=== PATIENT | female | born 1945 | race Caucasian/White ===

== ENCOUNTER 2024-04-14 18:38 | Inpatient (IN) | payer SELFPAY ==
--- OUTSIDE RECORDS SUMMARY | 2024-04-14 18:40 | XMS REPORT | Continuity of Care Document ---
Author Name Unknown Address [address] [place] [address] [address] [place] [address] [facility] Address [address] [facility] [address] [place] [address] Care Team Providers Care Supervisor Powdered Metal Name Role Phone SISSON_C Attending Clinician Unavailable SISSON_C Admitting Clinician Unavailable Payers Payer Name Policy Type Policy Number Effective Date Expirati on Date Source Allergies, Adverse Reactions, Alerts Allergy Name Allergy Type Status Severity Reaction(s) Onset Date Inactive Date Treating Clinician Comments Source [place] Allergy to substanc e Active [facility] Social History Smoking Status Start Date Stop Date Source Never Smoker Formerly [facility] Medications Ordered Medication Name Filled Medication Name Start Date Stop Date Current Medication? Ordering Clinician Indication Dosage Frequency Signature (SIG) Comments Components Source albuterol sulfate HFA 90 mcg/actuati on aerosol inhaler INHALE TWO (2) PUFFS BY MOUTH EVERY 4 HOURS NEEDED. albuterol sulfate HFA 90 mcg/actuati on aerosol inhaler INHALE TWO (2) PUFFS BY MOUTH EVERY 4 HOURS NEEDED. No 2puff(s ) Q4H albuterol sulfate HFA 90 mcg/actuat ion aerosol inhaler INHALE TWO (2) PUFFS BY MOUTH EVERY 4 HOURS NEEDED. [facility] clonazepam 1 mg tablet TAKE ONE (1) TABLET(S) BY MOUTH AT BEDTIME. clonazepam 1 mg tablet TAKE ONE (1) TABLET(S) BY MOUTH AT BEDTIME. No clonazepam 1 mg tablet TAKE ONE (1) TABLET(S) BY MOUTH AT BEDTIME. [facility] Vital Signs Vital Name Observation Time Observation Value Comments S ource Body Weight 2023-06-07 00:00:00 2709 [oz_av] [facility] BP Systolic 2023-06-07 00:00:00 122 mm[Hg] [facility] BP Diastolic 2023-06-07 00:00:00 70 mm[Hg] [facility] BP Diastolic 2022-06-07 00:00:00 72 mm[Hg] [facility] BP Systolic 2022-06-07 00:00:00 117 mm[Hg] [facility] Body Weight 2022-06-07 00:00:00 2130.4 [oz_av] [facility] Encounters Start Date/Time End Date/Time Encounter Type Admission Type Attending Clinicians Care Facility Care Department Encounter ID Source 2023-06-14 00:00:00 2023-06-14 00:00:00 DEISY Lowe, NANOSYSTEMS ENGINEER, ELECTRONIC DRAFTER-C: Kenneth Gald[address], [address], [place] [address] , Ph. [facility], DEISY Lowe, ELECTRONIC DRAFTER-C [facility] 2023-06-07 00:00:00 2023-06-07 00:00:00 DEISY Lowe, NANOSYSTEMS ENGINEER, ELECTRONIC DRAFTER-C: Kenneth Galdamez, [address], [place] [address] , Ph. [facility], DEISY Lowe, ELECTRONIC DRAFTER-C [facility] 2023-05-15 00:00:00 2023-05-15 00:00:00 Outpatient SISSON_C [facility] [id number] [facility] 2022-06-07 00:00:00 2022-06-07 00:00:00 Outpatient SISSON_C [facility] 2022-06-07 00:00:00 2022-06-07 00:00:00 DEISY Lowe, NANOSYSTEMS ENGINEER, ELECTRONIC DRAFTER-C: Kenneth Galdamez, [address], [place] [address] , Ph. [facility], Juan Harris, MSN, ELECTRONIC DRAFTER-C [id number] [facility] 2022-05-30 00:00:00 2022-05-30 00:00:00 Outpatient ADAIR [facility] [id number] [facility]
[2024-04-14 20:03] LABS: Absolute Eosinophils 0.1 K/uL (0-0.5); Absolute Lymphocytes (CBC) 0.9 K/uL (0.7-4.9); Absolute Monocytes 0.7 K/uL (0.1-1.3); Absolute Neutrophil 11.6 K/uL (1.8-8.0); Basophils % 0.3 % (0-1.3); Eosinophils % 0.8 % (0-4.4); Hemoglobin 13.6 g/dL (12.0-15.0); Lymphocytes % 6.9 % (15.3-44.8); MCH 30.8 pg (27.0-35.0); MCHC 33.1 g/dL (32.0-36.0); MCV 92.9 fL (80-100); MPV 7.5 fL (7.6-11.3); Monocytes % 5.4 % (3.3-12.3); Neutrophils % 86.6 % (41.7-73.7); Platelets 259 thou/uL (152-406); RBC Red Blood Cell Count 4.41 M/uL (3.86-4.86); Red Cell Distribution Width 13.8 % (12.1-15.2)
[2024-04-14 20:16] LABS: Anion Gap 10.1 mEq/L (5.0-15.0); Potassium 4.1 mEq/L (3.5-5.1)
[2024-04-14] MEDS ORDERED: FENTANYL CITR 100 MCG/2 ML ONE (20:19)
--- NOTE | 2024-04-14 20:26 | RAD REPORT ---
EXAM:Femur Left CLINICAL HISTORY: Left leg pain FINDINGS: A femoral fracture is not seen
--- NOTE | 2024-04-14 20:28 | RAD REPORT ---
EXAMINATION: Tib Fib Left CLINICAL INDICATION: Leg pain FINDINGS: Impacted fracture lateral tibial plateau which involves the tibial spine. The fracture extends inferi misbah approximately 12 cm to involve the tibial diaphysis
[2024-04-14 20:32] LABS: Specific Gravity 1.008 (1.005-1.030); Sqamous Epithelial <5 /HPF (None Seen); Urine Bacteria <20 /HPF (<20); Urine Bilirubin NEGATIVE (Negative); Urine Blood Negative (Negative); Urine Clarity Extremely Turbid (Clear); Urine Color Light-Yellow (Yellow); Urine Crystals Unidentified Few /HPF (None Seen); Urine Culture Reflex Order REFLEXED; Urine Glucose NEGATIVE (Negative); Urine Ketones NEGATIVE (Negative); Urine Micro Reflex YN NO BILL MICROSCOPIC; Urine Nitrite NEGATIVE (Negative); Urine Protein NEGATIVE (Negative); Urine Urobilinogen Normal (Normal); Urine Yeast (Budding) Occasional /HPF (None Seen)
--- NOTE | 2024-04-14 20:40 | ER ---
Nurse's Notes [facility] Name: Di Urbano Age: 78 yrs Sex: Female : 1945 Arrival Date: 04/14/2024 Time: 18:38 Bed 8 Private MD: Diagnosis: Displaced fracture of lateral condyle of left tibia, initial encounter for closed fracture;UTI/ Urinary tract infection, site not specified Presentation: 04/14 18:41 Chief complaint: EMS states: mechanical fall in shower, left leg was behind patient on me1 the floor. c/o pain to left medial knee. Dtr reports patient has frequent utis. Coronavirus screen: Vaccine status: At this time, the client does not indicate any symptoms associated with coronavirus-19. Ebola Screen: No symptoms or risks identified at this time. Initial Sepsis Screen: Does the patient meet any 2 criteria? No. Patient's initial sepsis screen is negative. Does the patient have a suspected source of infection? No. Patient's initial sepsis screen is negative. Risk Assessment: Do you want to hurt yourself or someone else? Patient reports no desire to harm self or others. Onset of symptoms was April 14, 2024. 18:41 Method Of Arrival: EMS[facility] ct1 18:41 Acuity: ROCIO 3 me1 Triage Assessment: 18:47 General: Appears uncomfortable, well groomed, well developed, well nourished, Behavior me1 is calm, cooperative, appropriate for age, Reports slip and fall in shower with pain to left knee. Pain: Complains of pain in left knee Pain does not radiate. Pain currently is 8 out of 10 on a pain scale. Quality of pain is described as sharp, Pain began suddenly, Is continuous. EENT: No signs and/or symptoms were reported regarding the EENT system. Neuro: Level of Consciousness is awake, alert, obeys commands, Oriented to person, hx alzheimers, A\T\OX1 baseline. Cardiovascular: Patient's skin is warm and dry. Respiratory: Airway is patent Respiratory effort is even, unlabored, Respiratory pattern is regular, symmetrical. GI: No signs and/or symptoms were reported involving the gastrointestinal system. : No signs and/or symptoms were reported regarding the genitourinary system. Derm: Skin is intact, is healthy with good turgor, Skin is pink, warm \T\ dry. Musculoskeletal: Reports pain in left knee. Injury Description: slip and fall in shower. Historical: - Allergies: 18:47 Iodine; me1 - PMHx: 18:47 Alzheimer's disease; me1 - Immunization history:: Adult Immunizations up to date. - Infectious Disease History:: Denies. - Social history:: Smoking status: Patient denies any tobacco usage or history of. Screenin:49 [facility] ED Fall Risk Assessment (Adult) History of falling in the last 3 months, me1 including since admission Yes- single mechanical fall (1 pt) Confusion or Disorientation Yes (5 pts) Intoxicated or Sedated No (0 pts) Impaired Gait Yes (1 pt) Mobility Assist Device Used Yes (1 pt) Altered Elimination No (0 pt) Score/Fall Risk Level 3 or more points = High Risk Maintained a safe environment, Hourly rounding (assess needs \T\ fall precautionary measures) done, Used ambulatory aids as needed (educated on \T\ assisted with). Abuse screen: Denies threats or abuse. Nutritional screening: No deficits noted. Tuberculosis screening: No symptoms or risk factors identified. Assessment: 18:49 General: see triage assessment. me1 20:24 Reassessment: Patient appears in no apparent distress at this time. No changes from vc1 previously documented assessment. Patient and/or family updated on plan of care and expected duration. Pain level reassessed. Vital Signs: 18:41 BP 112 / 84; Pulse 89; Resp 19; Temp 98.4; Pulse Ox 95% ; Weight 81.65 kg; Height 5 ft. me1 2 in. ; Pain 8/10; 19:09 BP 109 / 66; Pulse 87; Resp 19; Pulse Ox 94% ; vc1 20:15 BP 144 / 88; Pulse 97; Resp 18; Pulse Ox 98% ; vc1 18:41 Body Mass Index 32.92 (81.65 kg, 157.48 cm) me1 18:41 Pain Scale: Adult ct1 ED Course: 18:40 Patient arrived in ED. me1 18:41 Brett Rios PA is PHCP. cp 18:41 Brett Lord MD is Attending Physician. cp 18:47 Triage completed. me1 18:47 Arm band placed on Patient placed in an exam room. me1 18:49 Patient has correct armband on for positive identification. Bed in low position. Call me1 light in reach. Side rails up X2. Provided Education on: POC. Verbalized understanding.. Client placed on continuous cardiac and pulse oximetry monitoring. NIBP monitoring applied. Pulse ox on. NIBP on. 18:49 No provider procedures requiring assistance completed. me1 19:09 Report received from DARVIN Lemons. vc1 20:00 Inserted saline lock: 20 gauge in right antecubital area, using aseptic technique. oe Blood collected. Flushed with 10 mL NS. 20:11 XRAY Femur LEFT In Process Unspecified. EDMS 20:11 XRAY Tib Fib LEFT In Process Unspecified. EDMS 20:21 Janet Montes is Primary Nurse. cp4 20:36 Cesia Velazquez FNP is Hospitalizing Provider. cp 21:11 Breanna Roque MD is Hospitalizing Provider. cp 23:43 Patient admitted, IV remains in place. vc1 Administered Medications: 20:21 Drug: fentaNYL (PF) IVP 25 mcg IVP once Route: IVP; Site: right antecubital; cp4 20:35 Follow up: Response: No adverse reaction; Marked relief of symptoms; Pain is decreased vc1 21:09 Drug: NS 0.9% IV 500 ml 500 ml IV at 1 bolus once; to be given as a bolus over 60 cp4 minutes Volume: 500 ml; Route: IV; Rate: 1 bolus; Site: right antecubital; 22:00 Follow up: IV Status: Completed infusion; IV Intake: 500ml vc1 21:09 Drug: Rocephin IV 1 grams IV at calculated rate once; Given slow IV push per pharmacy cp4 instructions Route: IV; Rate: calculated rate; Site: right antecubital; 21:10 Follow up: IV Status: Completed infusion; IV Intake: 10ml vc1 22:31 Drug: SEROquel PO 25 mg PO once Route: PO; vc1 23:22 Follow up: Response: No adverse reaction; Marked relief of symptoms vc1 23:21 Not Given (Other Intervention Used): fentanyl (pf)25 mcg IVP once vc1 Medication: 18:49 VIS not applicable for this client. me1 Intake: 21:10 IV: 10ml; Total: 10ml. vc1 22:00 IV: 500ml; Total: 510ml. vc1 Outcome: 20:39 Decision to Hospitalize by Provider. cp 23:43 Admitted to Med/surg accompanied by tech, via stretcher, room 215, vc1 23:43 Condition: stable 23:43 Instructed on the need for admit, 23:44 Patient left the ED. vc1 Signatures: Dispatcher [employer] EDMS Brett Rios PA PA cp Joselo Loo Vanessa, RN RN vc1 Vesta Turcios RN RN ct1 Janet Montes cp4
--- NOTE | 2024-04-14 20:40 | EDPHYS ---
Physician Documentation [facility] Name: Di Urbano Age: 78 yrs Sex: Female : 1945 Arrival Date: 04/14/2024 Time: 18:38 Bed 8 Private MD: ED Physician Brett Lord HPI: 04/14 18:50 This 78 yrs old Female presents to ER via EMS with complaints of Fall Injury. cp 18:50 Details of fall: The patient fell from an upright position, while standing. cp 18:50 Onset: The symptoms/episode began/occurred just prior to arrival. Associated injuries: cp The patient sustained left leg. 18:50 Daughter reports patient fell on wet floor in shower with left leg becoming pin cp underneath patient. Historical: - Allergies: 18:47 Iodine; me1 - PMHx: 18:47 Alzheimer's disease; me1 - Immunization history:: Adult Immunizations up to date. - Infectious Disease History:: Denies. - Social history:: Smoking status: Patient denies any tobacco usage or history of. ROS: 18:55 Constitutional: Negative for fever, poor PO intake, cp 18:55 MS/extremity: Positive for injury or acute deformity, pain, of the left knee, cp 18:55 Eyes: Negative for injury, pain, redness, and discharge, cp 18:55 ENT: Negative for drainage from ear(s), ear pain, difficulty swallowing, difficulty handling secretions, 18:55 Cardiovascular: Negative for chest pain, edema, palpitations, 18:55 Respiratory: Negative for cough, shortness of breath, wheezing, 18:55 Abdomen/GI: Negative for abdominal pain, vomiting, diarrhea, constipation, 18:55 Back: Negative for pain at rest, pain with movement, 18:55 Neuro: Negative for altered mental status, dizziness, headache, speech changes, 18:55 All other systems are negative, Exam: 19:00 Constitutional: The patient appears in no acute distress, alert, awake, cp non-diaphoretic, non-toxic, well developed, well nourished, uncomfortable, 19:00 Head/Face: Normocephalic, atraumatic. cp 19:00 Eyes: Periorbital structures: appear normal, Pupils: equal, round, and reactive to light and accomodation, Conjunctiva: normal, no exudate, no injection, Sclera: no appreciated abnormality, Lids and lashes: appear normal, bilaterally, 19:00 ENT: External ear(s): are unremarkable, Nose: is normal, Mouth: Lips: moist, Oral mucosa: moist, Posterior pharynx: Airway: no evidence of obstruction, patent, 19:00 Neck: C-spine: vertebral tenderness, is not appreciated, crepitus, is not appreciated, ROM/movement: pain, is not appreciated, limited range of motion, is not appreciated, 19:00 Chest/axilla: Inspection: normal, Palpation: is normal, no crepitus, no tenderness, 19:00 Cardiovascular: Rate: normal, Rhythm: regular, 19:00 Respiratory: the patient does not display signs of respiratory distress, Respirations: normal, no use of accessory muscles, no retractions, labored breathing, is not present, Breath sounds: are clear throughout, no decreased breath sounds, no stridor, no wheezing, 19:00 Abdomen/GI: Inspection: abdomen appears normal, Palpation: abdomen is soft and non-tender, in all quadrants, 19:00 Back: pain, is absent, ROM is normal, 19:00 Musculoskeletal/extremity: Extremities: noted in the left knee and left lower leg: decreased ROM, deformity, pain, swelling, tenderness, ROM: limited passive range of motion, in the left knee, Pulses: noted to be 2+ in the left dorsalis pedis artery, the left foot and left leg Sensation intact. 19:00 Neuro: Orientation: no acute changes, per family, Mentation: no acute changes, per family, Sensation: no obvious gross deficits, 20:33 ECG was reviewed by the Attending Physician. Vital Signs: 18:41 BP 112 / 84; Pulse 89; Resp 19; Temp 98.4; Pulse Ox 95% ; Weight 81.65 kg; Height 5 ft. me1 2 in. ; Pain 8/10; 19:09 BP 109 / 66; Pulse 87; Resp 19; Pulse Ox 94% ; vc1 20:15 BP 144 / 88; Pulse 97; Resp 18; Pulse Ox 98% ; vc1 18:41 Body Mass Index 32.92 (81.65 kg, 157.48 cm) me1 18:41 Pain Scale: Adult me1 MDM: 18:41 Medical Screening Exam initiated cp 19:00 Differential diagnosis: closed head injury, contusion, fracture, laceration, multiple cp trauma, sprain. 20:20 Management of patient was discussed with the following: Dominatrix: DR Aponte will cp consult after discussion. 20:33 Data reviewed: vital signs, nurses notes, lab test result(s), EKG, radiologic studies, cp plain films, and as a result, I will admit patient. 21:10 Management of patient was discussed with the following: Hospitalist: Cesia Velazquez NP cp will admit to service of hospitalist after discussion for pain control and ortho consult. 04/14 18:47 Order name: Basic Metabolic Panel; Complete Time: 20:18 cp 04/14 20:18 Interpretation: Normal except: CL 109; GFR 83. cp 04/14 18:47 Order name: CBC with Diff; Complete Time: 21:28 cp 04/14 20:14 Interpretation: Normal except: WBC 13.40; MPV 7.5; EVELYN% 86.6; LYM% 6.9; NEUT A 11.6. cp 04/14 18:47 Order name: Type And Screen; Complete Time: 21:28 cp 04/14 20:18 Order name: Urinalysis W/Microscopic; Complete Time: 20:35 cp 04/14 20:35 Order name: Urine Culture EDMS 04/14 21:21 Order name: CBC Smear Scan; Complete Time: 21:28 EDMS 04/14 22:20 Order name: Urinalysis w/ reflexes EDMS 04/14 22:20 Order name: Basic Metabolic Panel EDMS 04/14 22:20 Order name: Basic Metabolic Panel EDMS 04/14 22:20 Order name: Basic Metabolic Panel EDMS 04/14 22:20 Order name: Basic Metabolic Panel EDMS 04/14 22:20 Order name: CBC with Automated Diff EDMS 04/14 22:20 Order name: CBC with Automated Diff EDMS 04/14 22:20 Order name: CBC with Automated Diff EDMS 04/14 22:20 Order name: CBC with Automated Diff EDMS 04/14 22:20 Order name: Magnesium EDMS 04/14 22:20 Order name: Magnesium EDMS 04/14 22:20 Order name: Magnesium EDMS 04/14 22:20 Order name: Magnesium EDMS 04/14 18:47 Order name: XRAY Femur LEFT; Complete Time: 20:27 cp 04/14 18:47 Order name: XRAY Tib Fib LEFT; Complete Time: 20:35 cp 04/14 20:14 Order name: EKG; Complete Time: 20:15 cp 04/14 22:20 Order name: CONS Physician Consult EDMT 04/14 22:22 Order name: Physical Therapy Consult [facility] 04/14 18:47 Order name: Labs collected and sent; Complete Time: 20:13 cp 04/14 20:14 Order name: EKG - Nurse/Tech; Complete Time: 21:00 cp 04/14 20:18 Order name: Knee Immobilizer; Complete Time: 21:00 cp EC:33 Rate is 93 beats/min. Rhythm is regular. IL interval is normal. QRS interval is normal. cp QT interval is normal. T waves are Inverted in lead aVR. Interpreted by me. Reviewed by me. Administered Medications: 20:21 Drug: fentaNYL (PF) IVP 25 mcg IVP once Route: IVP; Site: right antecubital; cp4 20:35 Follow up: Response: No adverse reaction; Marked relief of symptoms; Pain is decreased vc1 21:09 Drug: NS 0.9% IV 500 ml 500 ml IV at 1 bolus once; to be given as a bolus over 60 cp4 minutes Volume: 500 ml; Route: IV; Rate: 1 bolus; Site: right antecubital; 22:00 Follow up: IV Status: Completed infusion; IV Intake: 500ml vc1 21:09 Drug: Rocephin IV 1 grams IV at calculated rate once; Given slow IV push per pharmacy cp4 instructions Route: IV; Rate: calculated rate; Site: right antecubital; 21:10 Follow up: IV Status: Completed infusion; IV Intake: 10ml vc1 22:31 Drug: SEROquel PO 25 mg PO once Route: PO; vc1 23:22 Follow up: Response: No adverse reaction; Marked relief of symptoms vc1 23:21 Not Given (Other Intervention Used): fentanyl (pf)25 mcg IVP once vc1 Disposition Summary: 04/14/24 20:39 Hospitalization Ordered Notes: Hospitalization Status: Inpatient Admission cp Location: Telemetry/[facility] (Inpatient) cp Condition: Stable cp Problem: new cp Symptoms: have improved cp Bed/Room Type: Standard cp Provider: Breanna Roque(04/14/24 21:11) cp Room Assignment: 215(04/14/24 22:26) rv1 Diagnosis - Displaced fracture of lateral condyle of left tibia, initial encounter for closed cp fracture - UTI/ Urinary tract infection, site not specified cp Forms: - Medication Reconciliation Form cp - SBAR form cp - Leadership Thank You Letter cp Addendum: 04/24/2024 16:23 Co-signature as Attending Physician, Brett Lord MD I agree with the assessment and c edwards plan of care. Signatures: Dispatcher [employer] EDMS Brett Lord MD MD cha Page, Corey, PA PA cp Able, Lacie, RN RN lg3 Yuni Rader RN RN vc1 Bree Mccauley rv1 Vesta Turcios RN RN me1 Janet Montes cp4 Corrections: (The following items were deleted from the chart) 04/14 18:47 18:47 BASIC METABOLIC PANEL+C.LAB.BRZ ordered. EDMS EDMS 18:47 18:47 CBC+H.LAB.BRZ ordered. EDMS EDMS 18:47 18:47 TYPE AND SCREEN+BB.LAB.BRZ ordered. EDMS EDMS 20:19 20:19 Urinalysis W/Microscopic+U.LAB.BRZ ordered. EDMS EDMS 21:11 20:39 Cesia Velazquez cp cp 22:26 20:39 cp rv1
[2024-04-14] MEDS ORDERED: NA CHLORIDE 0.9% 500 ML ONE (21:05)
[2024-04-14] MEDS ORDERED: CEFTRIAXONE 1000 MG/VIAL ONE (21:05)
--- NOTE | 2024-04-14 21:08 | P.HP ---
Certification for Inpatient Patient admitted to: Inpatient <MarcusCesia - Last Filed: 04/14/24 23:59> Patient History Date of Service: 04/14/24 Reason for admission: Fall, left tibia fracture History of Present Illness: 78-year-old female presents to the emergency room via EMS for fall. HPI limited due to patient's confusion, no family at bedside. Medical record reports fall from standing position while standing. Patient is alert and oriented x 1, attempting to ambulate without assistance in ED, knee immobilizer on left lower extremity. Reports pain with range of motion. Family reports unable to care for patient at home, needs assistance with placement. No reported chest pain, abdominal pain, nausea vomiting diarrhea, recent infection. ER evaluation femoral fracture x-ray negative. Left lower extremity Impacted fracture lateral tibial plateau which involves the tibial spine. The fracture extends inferiorly approximately 12 cm to involve the tibial diaphysis. Laboratory evaluation mild leukocytosis at 13.40, left shift 86.6, UA acute cystitis, Admitted for fall, displaced fracture of the left tibia close, acute cystitis withOUT hematuria, metabolic encephalopathy, with surgery to consult - Past Medical/Surgical History -: Alzheimer's <Cesia Velazquez - Last Filed: 04/14/24 23:59> Date of Service: 04/14/24 <Breanna Roque - Last Filed: 04/19/24 02:45> Allergies iodine Allergy (Verified 04/15/24 00:03) Itching/Hives/Rash Home Medications: clonazePAM [Klonopin*] 1 mg PO BEDTIME 04/15/24 Ciprofloxacin HCl [Cipro 250 MG Tablet*] 250 mg PO BID 7 Days #14 tab 04/17/24 Tramadol HCl 100 mg PO Q6H PRN #28 tab 04/17/24 Tramadol HCl 100 mg PO Q6HR 7 Days #28 04/17/24 Review of Systems 10-point ROS is otherwise unremarkable <Cesia Velazquez - Last Filed: 04/14/24 23:59> Physical Examination - Physical Exam General: Alert, In no apparent distress, Oriented x1 HEENT: Atraumatic, Normocephalic Neck: Supple, 2+ carotid pulse no bruit, JVD not distended Respiratory: Normal air movement, Expiratory wheezes Cardiovascular: Normal pulses, Regular rate/rhythm, Normal S1 S2 Capillary refill: <2 Seconds Gastrointestinal: Normal bowel sounds, Soft and benign Musculoskeletal: Other (Generalized weakness, left lower extremity knee immobilizer, pain with range of motion) Integumentary: No breakdown, No significant lesion Neurological: Normal speech, Abnormal gait, Abnormal strength, Dementia - Studies Laboratory Data (last 24 hrs) 04/14/24 04/14/24 19:53 19:53 WBC 13.40 H Hgb 13.6 Hct 41.0 Plt Count 259 Sodium 140 Potassium 4.1 BUN 15 Creatinine 0.74 Glucose 101 <Cesia Velazquez - Last Filed: 04/14/24 23:59> Assessment and Plan - Problems (Diagnosis) (1) Metabolic encephalopathy Status: Acute (2) Avulsion fracture of lateral condyle of left tibia Status: Acute (3) Fall Status: Acute (4) Acute cystitis without hematuria Status: Acute - Plan Admit to [facility] -Orthopedic consult -N.p.o. for surgery to eval -IV fluids, IV antibiotics for UTI -As needed analgesics, antiemetics, -Social social service consult for discharge plan -PT ordered for DME needs -fall precaution -Urine culture Full code DVT SCDs Diet advance after surgery Disposition, oncology social work consulted for discharge planning Discharge Plan: Assisted - Advance Directives Does patient have a Living Will: No Does patient have a Durable POA for Healthcare: No - Code Status/Comfort Care Code Status: Full Code Critical Care: Yes Time Spent Managing Pts Care (In Minutes): 55 <Cesia Velazquez - Last Filed: 04/14/24 23:59> Date of Service: 04/14/24 Chart has been reviewed. Events of the last 24 hours have been noted. Case discussed with KIRIT. I performed a substantial part of the MDM during this patient's care today. I personally made or approved the documented management plan and acknowledge its risk of complications. I agree with the findings and documentation provided in the KIRIT's notes <Breanna Roque - Last Filed: 04/19/24 02:45>
[2024-04-14 21:21] LABS: Blood Morphology Comment NOT SEEN (NOT SEEN); Platelet Estimate ADEQ; White Blood Cell Scan OK (OK)
[2024-04-14] MEDS: QUETIAPINE 25 MG TAB ONE (22:11)
[2024-04-14] MEDS ORDERED: ACETAMINOPHEN 500 MG TAB PO PRN (22:13)
[2024-04-15 00:14] VITALS: BMI 32.9
[2024-04-15 00:37] VITALS: O2SAT 98
[2024-04-15] MEDS: NA CHLORIDE 0.9% 1,000 ML IV SCH (00:37)
[2024-04-15] MEDS: DIAZEPAM 2 MG TABLET PO PRN (02:11)
[2024-04-15] MEDS: HYDROCODONE/APAP 5/325 MG TAB PO PRN (05:23)
[2024-04-15 06:14] LABS: Absolute Eosinophils 0.1 K/uL (0-0.5); Absolute Monocytes 0.9 K/uL (0.1-1.3); Absolute Neutrophil 6.6 K/uL (1.8-8.0); Basophils % 0.5 % (0-1.3); Eosinophils % 0.9 % (0-4.4); Hematocrit 35.5 % (36.0-45.0); Hemoglobin 12.2 g/dL (12.0-15.0); Lymphocytes % 11.3 % (15.3-44.8); MCH 31.5 pg (27.0-35.0); MCHC 34.3 g/dL (32.0-36.0); MCV 91.9 fL (80-100); MPV 8.2 fL (7.6-11.3); Monocytes % 10.8 % (3.3-12.3); Neutrophils % 76.5 % (41.7-73.7); Platelets 227 thou/uL (152-406); RBC Red Blood Cell Count 3.86 M/uL (3.86-4.86); Red Cell Distribution Width 13.7 % (12.1-15.2)
[2024-04-15 06:27] LABS: Anion Gap 7.7 mEq/L (5.0-15.0); Potassium 3.7 mEq/L (3.5-5.1)
[2024-04-15] MEDS: KCL 20 MEQ/100 mL IVPB 20 MEQ/100 ML BAG IV SCH ×2 (09:00→10:35)
[2024-04-15] MEDS: CEFTRIAXONE 1,000 MG in NA CHLORIDE 0.9% 50 ML IVPB SCH (09:27)
[2024-04-15] MEDS: FLU (Fluarix Triv) TS24-25(6MOS UP)/PF 45 MCG/0.5 ML Syringe IM ONE (09:30)
--- NOTE | 2024-04-15 10:57 | EKG ---
Test Date: 2024-04-14 Test Time: 20:29:41 Manager Science: MIKE MEASUREMENT RESULTS: Intervals: Rate: 93 SD: 152 QRSD: 74 QT: 352 QTc: 437 [place]: P: 55 SD: 152 QRS: 32 T: 44 INTERPRETIVE STATEMENTS: Normal sinus rhythm Low voltage QRS Borderline ECG No previous ECG available for comparison Electronically Signed On 04-15-24 10:56:05 CDT by Yariel Lopez
--- NOTE | 2024-04-15 12:18 | P.CNS ---
Date of Consult: 04/15/24 (ortho consult)
--- NOTE | 2024-04-15 12:30 | CON ---
Reason For Consultation: Left tibial plateau fracture. History Of Present Illness: Ms. Urbano is a 78-year-old woman who sustained a fall in her home yesterday. She is ambulatory within her home environment and getting around reasonably well without assistance. She sustained a fall in the shower, now has a Schatzker 3 tibial plateau fracture. She thus will require open reduction and internal fixation. Best pathway forward is to allow the skin t o heal for 7 to 10 days prior to surgical intervention. She will be nonweightbearing in this interva l time. We will get Physical Therapy consult underway to keep her nonweightbearing. Typically, this injury is to discharge from the emergency room. Social reasons prevented her from going home. Foll owup will be in 7 to 10 days, reassessment of scan and then surgical planning for an open reduction a nd internal fixation of her left proximal tibia. KEKE/SHERITA Voice ID: [id number] Report ID: [id number]
--- NOTE | 2024-04-15 15:26 | P.PN ---
Date of Service: 04/15/24 Subjective: She is seen resting. Her daughter is at bedside. She is from [facility]. She denies any fevers overnight. She does have some pain at the fracture site. Her daughter states her dementia is pretty advanced Review of Systems 10-point ROS is otherwise unremarkable Physical Examination - Physical Exam General: Alert, In no apparent distress, Oriented x1 HEENT: Atraumatic, Normocephalic Neck: Supple, 2+ carotid pulse no bruit, JVD not distended Respiratory: Normal air movement, Expiratory wheezes Cardiovascular: Normal pulses, Regular rate/rhythm, Normal S1 S2 Capillary refill: <2 Seconds Gastrointestinal: Normal bowel sounds, Soft and benign Musculoskeletal: Other (Generalized weakness, left lower extremity knee immobilizer, pain with range of motion) Integumentary: No breakdown, No significant lesion Neurological: Normal speech, Abnormal gait, Abnormal strength, Dementia - Studies Laboratory Data (last 24 hrs) 04/14/24 04/14/24 19:53 19:53 WBC 13.40 H Hgb 13.6 Hct 41.0 Plt Count 259 Sodium 140 Potassium 4.1 BUN 15 Creatinine 0.74 Glucose 101 Assessment and Plan - Problems (Diagnosis) (1) Metabolic encephalopathy Current Visit: Yes Status: Acute (2) left tibial plateau fracture Current Visit: Yes Status: Acute (3) Fall Current Visit: Yes Status: Acute (4) Acute cystitis without hematuria Current Visit: Yes Status: Acute - Plan Admit to [facility] -Orthopedic consult appreciated -Start diet as she will need 7 to 9 days for healing prior to surgery -Continue Rocephin, urine culture -Continue [place] for pain control -Social social service consult for discharge plan -PT ordered for DME needs -fall precaution Full code DVT SCDs Diet advance after surgery Disposition, social media marketing manager consulted for discharge planning Discharge Plan: [facility] - Advance Directives Does patient have a Living Will: No Does patient have a Durable POA for Healthcare: No - Code Status/Comfort Care Code Status: Full Code Critical Care: Yes Time Spent Managing Pts Care (In Minutes): 45
[2024-04-15] MEDS: DOCUSATE NA/SENNA CONC 1 TAB PO SCH (20:22)
[2024-04-16 04:43] LABS: Absolute Lymphocytes (CBC) 0.5 K/uL (0.7-4.9); Absolute Monocytes 0.8 K/uL (0.1-1.3); Absolute Neutrophil 10.1 K/uL (1.8-8.0); Basophils % 0.3 % (0-1.3); Eosinophils % 0.1 % (0-4.4); Hemoglobin 11.8 g/dL (12.0-15.0); Lymphocytes % 4.7 % (15.3-44.8); MCH 31.6 pg (27.0-35.0); MCHC 33.6 g/dL (32.0-36.0); MPV 8.1 fL (7.6-11.3); Monocytes % 6.7 % (3.3-12.3); Platelets 218 thou/uL (152-406); RBC Red Blood Cell Count 3.72 M/uL (3.86-4.86); Red Cell Distribution Width 13.3 % (12.1-15.2)
[2024-04-16 04:45] LABS: Neutrophils % 88.2 % (41.7-73.7)
[2024-04-16 04:59] LABS: Anion Gap 8.9 mEq/L (5.0-15.0); Potassium 3.9 mEq/L (3.5-5.1)
[2024-04-16] MEDS: ONDANSETRON 4 MG/2 ML VIAL IV PRN (10:04)
--- NOTE | 2024-04-16 16:06 | P.PN ---
Date of Service: 04/16/24 Subjective: Seen resting comfortably in bed. Denies fevers or chills overnight. We discussed going home and following up with orthopedic surgery after discharge. Review of Systems 10-point ROS is otherwise unremarkable Physical Examination - Physical Exam General: Alert, In no apparent distress, Oriented x1 HEENT: Atraumatic, Normocephalic Neck: Supple, 2+ carotid pulse no bruit, JVD not distended Respiratory: Normal air movement, Expiratory wheezes Cardiovascular: Normal pulses, Regular rate/rhythm, Normal S1 S2 Capillary refill: <2 Seconds Gastrointestinal: Normal bowel sounds, Soft and benign Musculoskeletal: Other (Generalized weakness, left lower extremity knee immobilizer, pain with range of motion) Integumentary: No breakdown, No significant lesion Neurological: Normal speech, Abnormal gait, Abnormal strength, Dementia - Studies Laboratory Data (last 24 hrs) 04/14/24 04/14/24 19:53 19:53 WBC 13.40 H Hgb 13.6 Hct 41.0 Plt Count 259 Sodium 140 Potassium 4.1 BUN 15 Creatinine 0.74 Glucose 101 Assessment and Plan - Problems (Diagnosis) (1) Metabolic encephalopathy Current Visit: Yes Status: Acute (2) left tibial plateau fracture Current Visit: Yes Status: Acute (3) Fall Current Visit: Yes Status: Acute (4) Acute cystitis without hematuria Current Visit: Yes Status: Acute - Plan Admit to [facility] -Orthopedic consult appreciated -Start diet as she will need 7 to 9 days for healing prior to surgery -Continue Rocephin, urine culture -Continue [place] for pain control -Social social service consult for discharge plan -PT ordered for DME needs -fall precaution Full code DVT SCDs Diet advance after surgery Disposition, child welfare social worker consulted for discharge planning Discharge Plan: Home in 24-hour - Advance Directives Does patient have a Living Will: No Does patient have a Durable POA for Healthcare: No - Code Status/Comfort Care Code Status: Full Code Critical Care: Yes Time Spent Managing Pts Care (In Minutes): 30
[2024-04-17 04:52] LABS: Absolute Eosinophils 0.1 K/uL (0-0.5); Absolute Monocytes 1.1 K/uL (0.1-1.3); Absolute Neutrophil 9.1 K/uL (1.8-8.0); Basophils % 0.2 % (0-1.3); Eosinophils % 0.9 % (0-4.4); Hematocrit 32.7 % (36.0-45.0); Lymphocytes % 8.6 % (15.3-44.8); MCH 31.5 pg (27.0-35.0); MCHC 33.6 g/dL (32.0-36.0); MCV 93.7 fL (80-100); MPV 8.1 fL (7.6-11.3); Monocytes % 10.1 % (3.3-12.3); Neutrophils % 80.2 % (41.7-73.7); Platelets 219 thou/uL (152-406); RBC Red Blood Cell Count 3.49 M/uL (3.86-4.86); Red Cell Distribution Width 13.4 % (12.1-15.2)
[2024-04-17 05:12] LABS: Anion Gap 7.5 mEq/L (5.0-15.0); Magnesium 2.1 mg/dL (1.6-2.4); Potassium 3.5 mEq/L (3.5-5.1)
[2024-04-17] MEDS: POTASSIUM 25 MEQ EFFERV TAB PO ONE (07:19)
[2024-04-17 12:11] VITALS: BP 111/66; TEMP 97.9
--- NOTE | 2024-04-17 13:28 | P.DS ---
Admission Date: 04/14/24 Discharge Date: 04/17/24 Disposition: ROUTINE DISCHARGE Discharge Condition: GOOD Reason for Admission: Fall, left tibia fracture Hospital Course: Review of Systems 10-point ROS is otherwise unremarkable Physical Examination - Physical Exam General: Alert, In no apparent distress, Oriented x1 HEENT: Atraumatic, Normocephalic Neck: Supple, 2+ carotid pulse no bruit, JVD not distended Respiratory: Normal air movement, Expiratory wheezes Cardiovascular: Normal pulses, Regular rate/rhythm, Normal S1 S2 Capillary refill: <2 Seconds Gastrointestinal: Normal bowel sounds, Soft and benign Musculoskeletal: Other (Generalized weakness, left lower extremity knee immobilizer, pain with range of motion) Integumentary: No breakdown, No significant lesion Neurological: Normal speech, Abnormal gait, Abnormal strength, Dementia - Studies Laboratory Data (last 24 hrs) 04/14/24 04/14/24 19:53 19:53 WBC 13.40 H Hgb 13.6 Hct 41.0 Plt Count 259 Sodium 140 Potassium 4.1 BUN 15 Creatinine 0.74 Glucose 101 Assessment and Plan - Problems (Diagnosis) (1) Metabolic encephalopathy Current Visit: Yes Status: Acute (2) left tibial plateau fracture Current Visit: Yes Status: Acute (3) Fall Current Visit: Yes Status: Acute (4) Acute cystitis without hematuria Current Visit: Yes Status: Acute - Plan Admit to [facility] -Orthopedic consult appreciated -Start diet as she will need 7 to 9 days for healing prior to surgery -Continue Rocephin, urine culture -Continue [place] for pain control -Social social service consult for discharge plan -PT ordered for DME needs -fall precaution 78-year-old female presents to the emergency room via EMS for fall. HPI limited due to patient's confusion, no family at bedside. Medical record reports fall from standing position while standing. Imaging revealed Schatzker 3 tibial plateau fracture of the left leg. Upon admission orthopedic surgery was consulted. Per recommendation she is to be nonweightbearing for 7 to 9 days prior to surgical intervention. Arrangements have been made for her to be discharged home with follow-up for open reduction and internal fixation of the left proximal tibia. In addition she was found to have abnormal urinalysis with reflex urine culture positive for Klebsiella Ozaenae. She was started on IV antibiotics and switched over to oral ciprofloxacin to complete 7 days. The remainder of her medical problems are chronic and stable. She is medically optimized for discharge Vital Signs/Physical Exam: Temp Pulse Resp BP Pulse Ox 97.9 F 106 H 12 111/66 92 04/17/24 12:00 04/17/24 12:00 04/17/24 12:00 04/17/24 12:00 04/17/24 12:00 Laboratory Data at Discharge: WBC 11.40 thou/uL (4.3-10.9) H 04/17/24 04:10 Hgb 11.0 g/dL (12.0-15.0) L 04/17/24 04:10 Hct 32.7 % (36.0-45.0) L 04/17/24 04:10 Plt Count 219 thou/uL (152-406) 04/17/24 04:10 Sodium 138 mEq/L (136-145) 04/17/24 04:10 Potassium 3.5 mEq/L (3.5-5.1) 04/17/24 04:10 BUN 16 mg/dL (7-18) 04/17/24 04:10 Creatinine 0.68 mg/dL (0.55-1.02) 04/17/24 04:10 Glucose 111 mg/dL (74-106) H 04/17/24 04:10 Magnesium 2.1 mg/dL (1.6-2.4) 04/17/24 04:10 Home Medications: clonazePAM [Klonopin*] 1 mg PO BEDTIME 04/15/24 Ciprofloxacin HCl [Cipro 250 MG Tablet*] 250 mg PO BID 7 Days #14 tab 04/17/24 New Medications: Ciprofloxacin HCl [Cipro 250 MG Tablet*] 250 mg PO BID 7 Days #14 tab Followup: Juan Harris, RN [Primary Care Provider] -
[2024-04-17] MEDS ORDERED: CEFDINIR 300 MG CAP PO SCH (21:00)
== END 2024-04-17 15:39 | disposition home or self-care (01) | DRG 562 ==
LOC: ER 18:38 → ERHOLD 22:11 → 2ND 23:23
PROVIDERS: ADMIT Hospitalist; ATTEND Family Medicine
PROC: 0T9B70Z Drainage of Bladder with Drainage Device, Via Natural or Artificial Opening (ICD-10-PCS; principal; 2024-04-14)
DX: S82.122A Displaced fracture of lateral condyle of left tibia, initial encounter for closed fracture (principal); G93.41 Metabolic encephalopathy; N30.00 Acute cystitis without hematuria; G30.9 Alzheimer's disease, unspecified; F02.80 Dementia in other diseases classified elsewhere, unspecified severity, without behavioral disturbance, psychotic disturbance, mood disturbance, and anxiety; Z23 Encounter for immunization; Z88.8 Allergy status to other drugs, medicaments and biological substances; Z79.899 Other long term (current) drug therapy; W18.30XA Fall on same level, unspecified, initial encounter; Y93.E1 Activity, personal bathing and showering; Y92.012 Bathroom of single-family (private) house as the place of occurrence of the external cause; Y99.9 Unspecified external cause status
CPT/HCPCS: 36415; 80048; 81001; 83735; 85025; 86850; 86900; 86901; 87077; 87086; 87088; 87186; 90656; 93005; 96361; 96374; 96375; 97116; 97161; 97530; 99285; J0696; J2405; J3010; J3480; J7030; J7040

== ENCOUNTER 2024-04-23 15:07 | Emergency (ER) | payer SELFPAY ==
--- OUTSIDE RECORDS SUMMARY | 2024-04-23 15:09 | XMS REPORT | Continuity of Care Document ---
Author Name Unknown Address [address] [place] [id number] [facility] Address [address] [place] [address] [address] [place] [address] Care Team Providers Care Arc Welder Name Role Phone SISSON_C Attending Clinician Unavailable SISSON_C Admitting Clinician Unavailable Payers Payer Name Policy Type Policy Number Effective Date Expirati on Date Source Allergies, Adverse Reactions, Alerts Allergy Name Allergy Type Status Severity Reaction(s) Onset Date Inactive Date Treating Clinician Comments Source [place] Allergy to substanc e Active [facility] Social History Smoking Status Start Date Stop Date Source Never Smoker [facility] Medications Ordered Medication Name Filled Medication Name [...] PUFFS BY MOUTH EVERY 4 HOURS NEEDED. [facility] clonazepam 1 mg tablet TAKE ONE (1) TABLET(S) BY MOUTH AT BEDTIME. clonazepam 1 mg tablet TAKE ONE (1) TABLET(S) BY MOUTH AT BEDTIME. No clonazepam 1 mg tablet TAKE ONE (1) TABLET(S) BY MOUTH AT BEDTIME. [facility] Vital Signs Vital Name Observation Time Observation Value Comments S ource Body Weight 2023-06-07 00:00:00 2709 [oz_av] [facility] BP Systolic 2023-06-07 00:00:00 122 mm[Hg] [facility] BP Diastolic 2023-06-07 00:00:00 70 mm[Hg] [facility] BP Diastolic 2022-06-07 00:00:00 72 mm[Hg] [facility] BP Systolic 2022-06-07 00:00:00 117 mm[Hg] [facility] Body Weight 2022-06-07 00:00:00 2130.4 [oz_av] [facility] Encounters Start Date/Time End Date/Time Encounter Type Admission Type Attending Clinicians Care Facility Care Department Encounter ID Source 2023-06-14 00:00:00 2023-06-14 00:00:00 Juan Harris MSN, CUSTOMER CONTACT SPECIALIST, ASSEMBLY INSPECTOR HELPER-C: [address], [address], [place] [address] , Ph. [facility], Juan Harris MSN, ASSEMBLY INSPECTOR HELPER-C [id number] [facility] 2023-06-07 00:00:00 2023-06-07 00:00:00 DEISY Lowe, CUSTOMER CONTACT SPECIALIST, ASSEMBLY INSPECTOR HELPER-C: [address], [place] [address] , Ph. [facility], DEISY Lowe, ASSEMBLY INSPECTOR HELPER-C [id number] [facility] 2023-05-15 00:00:00 2023-05-15 00:00:00 Outpatient SISSON_C [facility] [id number] [facility] 2022-06-07 00:00:00 2022-06-07 00:00:00 Outpatient SISSON_C [facility] [id number] 2022-06-07 00:00:00 2022-06-07 00:00:00 Juan Kimberly, MSN, CUSTOMER CONTACT SPECIALIST, ASSEMBLY INSPECTOR HELPER-C: [address], [address], [place] [address] , Ph. [facility], Juan Harris, MSN, ASSEMBLY INSPECTOR HELPER-C [id number] [facility] 2022-05-30 00:00:00 2022-05-30 00:00:00 Outpatient ADAIR [facility] [id number] [facility]
[2024-04-23 16:05] LABS: Absolute Basophils 0.1 K/uL (0-0.5); Absolute Eosinophils 0.3 K/uL (0-0.5); Absolute Lymphocytes (CBC) 1.2 K/uL (0.7-4.9); Absolute Monocytes 0.9 K/uL (0.1-1.3); Basophils % 0.7 % (0-1.3); Eosinophils % 3.3 % (0-4.4); Hematocrit 31.8 % (36.0-45.0); Lymphocytes % 13.9 % (15.3-44.8); MCH 32.2 pg (27.0-35.0); MCHC 34.5 g/dL (32.0-36.0); MCV 93.4 fL (80-100); MPV 7.4 fL (7.6-11.3); Monocytes % 10.2 % (3.3-12.3); Neutrophils % 71.9 % (41.7-73.7); Platelets 258 thou/uL (152-406); RBC Red Blood Cell Count 3.41 M/uL (3.86-4.86); Red Cell Distribution Width 13.6 % (12.1-15.2)
[2024-04-23] MEDS ORDERED: HYDROCODONE/APAP 5/325 MG TAB ONE (16:33)
--- NOTE | 2024-04-23 16:35 | RAD REPORT ---
EXAM:Tib Fib Left HISTORY: fracture;Pain COMPARISON: None IMPRESSION: Displaced split-type fracture of the lateral tibial plateau with nearly 2 cm of lateral d isplacement, similar. Small knee effusion. The fracture may also extend to the medial tibial plateau. CT could better establish full extent of the fracture.
[2024-04-23 16:38] LABS: Specific Gravity > 1.030 (1.005-1.030); Urine Bacteria <20 /HPF (<20); Urine Bilirubin NEGATIVE (Negative); Urine Blood Negative (Negative); Urine Clarity Extremely Turbid (Clear); Urine Color Yellow (Yellow); Urine Crystals Unidentified Few /HPF (None Seen); Urine Culture Reflex Order NOT NEEDED; Urine Glucose NEGATIVE (Negative); Urine Ketones NEGATIVE (Negative); Urine Micro Reflex YN NO BILL MICROSCOPIC; Urine Mucus Slight /HPF (None Seen); Urine Nitrite NEGATIVE (Negative); Urine Protein TRACE (Negative); Urine RBC <5 /HPF (None Seen); Urine Urobilinogen 1+ (Normal); Urine WBC <5 /HPF (<5); Urine Yeast (Budding) Trace /HPF (None Seen); Urine pH 6.5 (5.0-7.0)
--- NOTE | 2024-04-23 16:51 | RAD REPORT ---
Extremity Venous Uni Ltd CLINICAL INDICATION: Female, 78 years old.PAIN TECHNIQUE: Complete duplex sonography of the lower extremity veins was performed of the affected limb . The examination included compression for vein patency, color Doppler imaging and flow augmentation in response to distal compression of the distal external iliac, common femoral, femoral, popliteal, peroneal, tibial and great saphenous veins. [id number]. COMPARISON: No prior exams FINDINGS: Duplex sonography imaging demonstrates all deep veins examined to be fully compressible with spontane ous, phasic and augmented flow in the affected limb. IMPRESSION: No evidence of deep venous thrombosis in the left lower extremity.
--- NOTE | 2024-04-23 17:24 | ER ---
Nurse's Notes [facility] Name: Di Urbano Age: 78 yrs Sex: Female : 1945 Arrival Date: 04/23/2024 Time: 15:07 Bed 15 Private MD: Diagnosis: Displaced fracture of left tibial spine, initial encounter for closed fracture Presentation: 04/23 15:18 Chief complaint: Patient's son or daughter states: L tibial plateau fracture that ph occurred 10 days ago, awaiting surgery, came to ED for increased swelling and pain meds not helping w/ pain, currently taking tramadol. Coronavirus screen: Vaccine status: Patient reports receiving the 2nd dose of the covid vaccine. Ebola Screen: No symptoms or risks identified at this time. Initial Sepsis Screen: Does the patient meet any 2 criteria? No. Patient's initial sepsis screen is negative. Does the patient have a suspected source of infection? No. Patient's initial sepsis screen is negative. Risk Assessment: Do you want to hurt yourself or someone else? Patient reports no desire to harm self or others. Onset of symptoms was April 23, 2024. 15:18 Method Of Arrival: EMS: [facility] 15:18 Acuity: ROCIO 3 ph Triage Assessment: 15:42 General: Appears in no apparent distress. Behavior is calm, cooperative, quiet. Pain: ph Complains of pain in left leg. Neuro: Level of Consciousness is awake, obeys commands, confused, Oriented to person, place. Cardiovascular: Capillary refill < 3 seconds in bilateral fingers Patient's skin is warm and dry. Respiratory: Airway is patent Respiratory effort is even, unlabored. Derm: Skin is pink, warm \T\ dry. Bruising that is green, yellow, on left leg. Musculoskeletal: Swelling present in left leg. Historical: - Allergies: 15:41 Iodine; ph - Home Meds: 15:41 Clonazepam Oral every day at bedtime [Active]; Tramadol Oral [Active]; ph - PMHx: 15:41 Alzheimer's disease; ph - Immunization history:: Adult Immunizations unknown. - Infectious Disease History:: Denies. - Social history:: Smoking status: Patient denies any tobacco usage or history of. Screenin:43 [facility] ED Fall Risk Assessment (Adult) History of falling in the last 3 months, ph including since admission Yes- single mechanical fall (1 pt) Confusion or Disorientation Yes (5 pts) Intoxicated or Sedated No (0 pts) Impaired Gait Yes (1 pt) Mobility Assist Device Used Yes (1 pt) Altered Elimination Yes (1 pt) Score/Fall Risk Level 3 or more points = High Risk Oriented to surroundings, Maintained a safe environment, Educated pt \T\ family on fall prevention, incl call for assistance when getting out of bed, Hourly rounding (assess needs \T\ fall precautionary measures) done, Used ambulatory aids as needed (educated on \T\ assisted with), Utilized family, sitter, or virtual staff nurse as indicated. Abuse screen: Denies threats or abuse. Denies injuries from another. Nutritional screening: No deficits noted. Tuberculosis screening: No symptoms or risk factors identified. Assessment: 16:30 General: SEE TRIAGE ASSESSMENT. ph 18:02 Reassessment: Patient appears in no apparent distress at this time. Patient and/or ph family updated on plan of care and expected duration. Pain level reassessed. Pt d/c home w/ daughter. Vital Signs: 15:18 BP 117 / 76; Pulse 101; Resp 18; Temp 97.7; Pulse Ox 96% on R/A; Weight 81.65 kg; ph Height 5 ft. 3 in. ; 17:12 BP 122 / 79; Pulse 96; Resp 18; Pulse Ox 98% on R/A; ph 18:03 BP 118 / 72; Pulse 89; Resp 18; Pulse Ox 97% on R/A; ph 15:18 Body Mass Index 31.89 (81.65 kg, 160.02 cm) ph ED Course: 15:15 Patient arrived in ED. ty 15:18 Di Stewart, RN is Primary Nurse. ph 15:28 Rober Keita DO is Attending Physician. ms3 15:40 Triage completed. ph 15:42 Arm band placed on Patient placed in an exam room, on a stretcher, on pulse oximetry. ph 15:43 Patient has correct armband on for positive identification. Bed in low position. Call light in reach. Side rails up X 1. Pulse ox on. NIBP on. Door closed. Noise minimized. Warm blanket given. Pillow given. 16:00 Initial lab(s) drawn, by me, sent to lab. Maintain EMS IV. Dressing intact. Good blood ph return noted. Site clean \T\ dry. Gauge \T\ site: 20 RFA. Flushed with 10 mL NS. 16:26 Tib Fib Left In Process Unspecified. EDMS 16:41 Extremity Venous Uni Ltd US In Process Unspecified. EDMS 17:23 Zane Aponte MD is Referral Physician. ms3 17:36 No provider procedures requiring assistance completed. ph 18:03 IV discontinued, intact, bleeding controlled, No redness/swelling at site. Pressure ph dressing applied. Administered Medications: 16:42 Drug: HYDROcodone-acetaminophen PO 5 mg-325 mg 1 tabs PO once Route: PO; ph 18:02 Follow up: Response: No adverse reaction; Pain is decreased; RASS: Alert and Calm (0) ph Medication: 15:43 VIS not applicable for this client. ph Outcome: 17:24 Discharge ordered by . ms3 18:03 Discharged to home via wheelchair, with family, ph 18:03 Condition: good 18:03 Discharge instructions given to family, Instructed on discharge instructions, follow up and referral plans. Demonstrated understanding of instructions, follow-up care, 18:04 Patient left the ED. ph Signatures: Dispatcher [employer] Di Liu RN RN ph Rober Keita DO DO ms3 Rashard Garnica ty
--- NOTE | 2024-04-23 17:24 | EDPHYS ---
Physician Documentation [facility] Name: Di Urbano Age: 78 yrs Sex: Female : 1945 Arrival Date: 04/23/2024 Time: 15:07 Bed 15 Private MD: ED Physician Rober Keita HPI: 04/23 17:58 This 78 yrs old Female presents to ER via EMS with complaints of Leg Pain[place] [facility] [place] 17:58 78-year-old female with past medical history of Alzheimer's disease [place] [facility] [place] for left tibial fracture swelling and pain. Patient's daughter states patient slipped and fell in the bathtub 9 days ago and is having continued pain and swelling. Patient was instructed by orthopedics that swelling needed to go down prior to surgery.. Historical: - Allergies: 15:41 Iodine; ph - Home Meds: 15:41 Clonazepam Oral every day at bedtime [Active]; Tramadol Oral [Active]; ph - PMHx: 15:41 Alzheimer's disease; ph - Immunization history:: Adult Immunizations unknown. - Infectious Disease History:: Denies. - Social history:: Smoking status: Patient denies any tobacco usage or history of. ROS: 17:58 Constitutional: Negative for fever, and chills. Cardiovascular: Negative for chest ms3 pain, and palpitations. Respiratory: Negative for shortness of breath, cough, wheezing, and pleuritic chest pain, Abdomen/GI: Negative for abdominal pain, nausea, vomiting, diarrhea, and constipation, 17:58 MS/extremity: Positive for Left leg swelling, erythema, pain, Exam: 17:58 Constitutional: This is a well developed, well nourished patient who is awake, alert, ms3 and in no acute distress. Cardiovascular: Regular rate and rhythm with a normal S1 and S2. No gallops, murmurs, or rubs. Normal PMI, no JVD. No pulse deficits. Respiratory: Lungs have equal breath sounds bilaterally, clear to auscultation and percussion. No rales, rhonchi or wheezes noted. No increased work of breathing, no retractions or nasal flaring. Abdomen/GI: Soft, non-tender, with normal bowel sounds. No distension or tympany. No guarding or rebound. No evidence of tenderness throughout. 17:58 Musculoskeletal/extremity: Extremities: noted in the left leg: ecchymosis, pain, swelling, tenderness, Vital Signs: 15:18 BP 117 / 76; Pulse 101; Resp 18; Temp 97.7; Pulse Ox 96% on R/A; Weight 81.65 kg; ph Height 5 ft. 3 in. ; 17:12 BP 122 / 79; Pulse 96; Resp 18; Pulse Ox 98% on R/A; ph 18:03 BP 118 / 72; Pulse 89; Resp 18; Pulse Ox 97% on R/A; ph 15:18 Body Mass Index 31.89 (81.65 kg, 160.02 cm) ph MDM: 15:28 Medical Screening Exam initiated ms3 17:58 Differential diagnosis: closed fracture, contusion, DVT. Data reviewed: vital signs, ms3 nurses notes, lab test result(s), radiologic studies, and as a result, I will discharge patient. Management of patient was discussed with the following: Brush Hand: Dr. Dewitt-patient would likely have surgery next week as swelling needs to decrease prior to surgery. I considered the following discharge prescriptions or medication management in the emergency department Medications were administered in the Emergency Department. See MAR. Counseling: I had a detailed discussion with the patient and/or guardian regarding the historical points, exam findings, and any diagnostic results supporting the discharge/admit diagnosis, lab results, radiology results, the need for outpatient follow up, to return to the emergency department if symptoms worsen or persist or if there are any questions or concerns that arise at home. Special discussion: I discussed with the patient/guardian in detail that at this point there is no indication for admission to the hospital. It is understood, however, that if the symptoms persist or worsen the patient needs to return immediately for re-evaluation. ED course: Discussed conversation with Dr. Dewitt with patient's daughter. She understands and agrees with plan. Patient given prescription for [place] for pain control. Ultrasound does not reveal DVT and x-rays reveal similar fracture. Patient to follow-up with Dr. Dewitt tomorrow as scheduled. All questions were answered. No signs of compartment syndrome present at this time.. 04/23 15:29 Order name: CBC with Diff; Complete Time: 16:51 ms3 04/23 15:29 Order name: BMP; Complete Time: 16:51 ms3 04/23 15:32 Order name: Urinalysis W/Microscopic; Complete Time: 16:51 ms3 04/23 15:59 Order name: Extremity Venous Uni Ltd US; Complete Time: 17:11 ms3 04/23 16:20 Order name: Tib Fib Left; Complete Time: 16:51 EDMS Administered Medications: 16:42 Drug: HYDROcodone-acetaminophen PO 5 mg-325 mg 1 tabs PO once Route: PO; ph 18:02 Follow up: Response: No adverse reaction; Pain is decreased; RASS: Alert and Calm (0) ph Disposition Summary: 04/23/24 17:24 Discharge Ordered Notes: Location: Home ms3 Condition: Stable ms3 Diagnosis - Displaced fracture of left tibial spine, initial encounter for closed fracture ms3 Followup: ms3 - With: Zane Dewitt MD - When: Tomorrow - Reason: Recheck today's complaints Discharge Instructions: - Discharge Summary Sheet ms3 - Displaced Tibial Plateau Fracture ms3 Forms: - Medication Reconciliation Form ms3 - Antibiotic Education ms3 - Prescription Opioid Use ms3 - Patient Portal Instructions ms3 - Leadership Thank You Letter ms3 Signatures: Dispatcher [employer] EDDi Poe RN RN ph Rober Keita DO DO ms3 Corrections: (The following items were deleted from the chart) 15:29 15:29 Knee Left 3 View+RAD.RAD.BRZ ordered. EDMS EDMS 15:29 15:29 Tib Fib Left+RAD.RAD.BRZ ordered. EDMS EDMS 16:00 16:00 Extremity Venous Uni Ltd+US.RAD.BRZ ordered. EDMS EDMS
[2024-04-23 23:26] VITALS: TEMP 97.7
[2024-04-23 23:28] VITALS: BP 118/72; O2SAT 97
== END 2024-04-23 18:04 | disposition home or self-care (01) ==
LOC: ER 15:07
DX: S82.112A Displaced fracture of left tibial spine, initial encounter for closed fracture (principal); W01.0XXA Fall on same level from slipping, tripping and stumbling without subsequent striking against object, initial encounter; G30.9 Alzheimer's disease, unspecified; F02.80 Dementia in other diseases classified elsewhere, unspecified severity, without behavioral disturbance, psychotic disturbance, mood disturbance, and anxiety
CPT/HCPCS: 36415; 80048; 81001; 85025; 93971